=== PATIENT | female | born 1985 | race Caucasian/White ===

== ENCOUNTER → 2017-03-23 12:13 | Outpatient (CLI) | payer SELFPAY, OTHER ==
--- NOTE | 2017-03-23 12:18 | US_ITS ---
STUDY: FIRST TRIMESTER OBSTETRICAL ULTRASOUND REASON FOR EXAM: Female, 31 years old. Bleeding. LMP: November 20, 2016. TECHNIQUE: Transvaginal PRIOR ULTRASOUND: None. FINDINGS: There is visualization of a single gestational sac in a normal intrauterine position. The gestational sac is low-lying and irregular shape. There is a visualized yolk sac. The yolk sac measures . There is visualization of the placenta. The placenta is along the anterior wall. There is no demonstrated embryo ( pole). The estimated gestation age (EGA) by LMP is 17 weeks, 4 days. The estimated date of delivery (GEO) by LMP is August 27, 2017. The uterus measures 12.6 cm x 10.0 cm x 8.8 cm. The uterus is retroverted. There is no demonstrated uterine fibroid. The cervix is closed. The right ovary is not visualized. The left ovary is not visualized. There is no fluid in the cul de sac. US/Init OB < 14Wks US IMPRESSION: Incomplete . The placenta is within the anterior wall of the uterus. This is in keeping with retained products of conception. Electronically Signed: Juan Mackenzie MD at 13:30 EST Tel [phone], Service support ,
== END ==
PROVIDERS: Family Provider Family Medicine; PCP Family Medicine; Visit Provider Family Medicine
DX: N93.9 Abnormal uterine and vaginal bleeding, unspecified (principal)
CPT/HCPCS: 76801

== ENCOUNTER 2017-03-25 10:22 | Day surgery (SDC) | payer SELFPAY ==
--- NOTE | 2017-03-25 | POC_PTH ---
PATIENT: LESLI PERLA [place] [facility] [id number] AGE/SX: ROOM: RE03/25/[address]: Dr. Scott Nina MD : 1985 BED: DIS: 03/25/2017 SPEC #: [id number] RECD: 03/25/17 09:20 STATUS: SHIREEN BHUPINDER #: [id number] MAKSIM: 03/25/17 00:[address]: Scott Nina DEPT: SURGICAL PATHOLOGY RECD BY: Sohan Hampton ENTERED: 03/28/17 09:20 SP TYPE: PROD CONC OTHR DR: Dr. Rogerio Regalado, Tissues: Product of conception, NOS Procedures: Surgery Specimen Level IV HEADER OPERATION: Dilation and curettage suction PRE-OP DIAGNOSIS: Missed TISSUE SUBMITTED: Products of conception MICROSCOPIC DIAGNOSIS Endometrium, curettage: Chorionic villi, decidualized stroma and trophoblastic cells consistent with products of conception. AM:joanna 03/29/17 MICROSCOPIC DESCRIPTION Slides are reviewed. GROSS DESCRIPTION Received in fixative is one container labeled with the patient's name and designated products of conception. The specimen consists of multiple irregular fragments of red-gunn soft tissue that in aggregate measure 14 x 12 x 1 cm. parts are not grossly recognized. Cleaning Attendant sections are submitted in one cassette. / AM:joanna 03/28/17 TC:5 CPT: 18443
[2017-03-25 10:45] VITALS: BP 98/57; PULSE 64; RESP 16; TEMP 37.5; O2SAT 100; BMI 25.2
[2017-03-25 10:55] LABS: Hematocrit 40.3 % (37-47); Hemoglobin 13.9 g/dl (12.0-15.0); Mean Corp Hgb Conc 34.5 g/gl (32-36); Mean Corpuscular Hgb 30.7 pg (27.0-32.0); Mean Platelet Vol. 8.3 fl (6.2-12.0); Platelet Count 302 K/mm3 (150-450); RBC Distribution Width CV 12.5 % (11.6-14.6); RBC Distribution Width SD 40.3 fl (35.1-43.9); Red Blood Count 4.53 M/mm3 (4.2-5.4); White Blood Count 9.8 K/mm3 (4.4-11.0)
[2017-03-25 10:56] LABS: Scan Indicated on CBC? Y/N NO
[2017-03-25 11:04] LABS: International Normalized Ratio 1.1; Prothrombin Time (Protime)PT. 13.8 SECONDS (11.7-14.9)
[2017-03-25 11:05] LABS: Partial Thromboplast Time 30.7 Seconds (24.1-36.2)
--- NOTE | 2017-03-25 12:05 | PCM.DC ---
You will use the following diet at home:: No restrictions Your food should be the consistency of: Regular Discharge Activity: Return to Normal Activity, May Drive, May Shower Return to work on:: 03/30/17 May shower in (days): 0 May resume sexual activity in: 4-6 weeks Call your doctor if your incision/area has: Sudden Increased Bleeding, Increased Pain/ Swelling, Foul Smelling Discharge Call your doctor if you observe: Fever of 101 or Higher, Inability to urinate, Inability to have a bowel movement, Using more than one pad per hour, Shortness of breath, Chest pain, Calf discomfort, Uncontrolled pain Cleanse incision/area with: Soap & Water Allergies/Adverse Reactions: Allergies No Known Allergies Allergy (Verified 09/07/13 14:42) Medications to take at Discharge [place]-3 Fatty Acids/Fish Oil [Fish Oil 1,000 mg Softgel] 3 each PO DAILY 09/07/13 Vits [Prenatabs FA ] 1 tablet PO DAILY 09/07/13 Adrenal Food 4 tab PO DAILY 03/24/17 Ibuprofen [Motrin] 800 mg PO TID PRN PRN #30 tab 03/25/17 Oxycodone [Oxyir] 5 mg PO Q6H PRN PRN 3 Days #10 tab 03/25/17 The following prescriptions were given: Oxycodone [Oxyir] 5 mg PO Q6H PRN PRN 3 Days #10 tab PRN Reason: Pain Ibuprofen [Motrin] 800 mg PO TID PRN PRN #30 tab PRN Reason: pain or cramping Primary Care Physician: Rogerio Regalado [Primary Care Provider] - Please Follow Up With: Scott Nina MD When: one week Proposed Discharge Date: 03/25/17
--- NOTE | 2017-03-25 12:27 | PCM.OPRPT ---
Problem List (1) Missed with demise before 20 completed weeks of gestation Status: Chronic Report of Operation Date of Procedure: 03/25/17 Pre-Operative Diagnosis: Missed Post-Operative Diagnosis: Same Surgery/Procedure Performed:: Suction Dilation and Curettage Description of Surgical Findings:: Uterus 14 weeks size. Moderate amount of products of conception obtained. Cervix no lesions. rubber stamp die inspector: None Type of Anesthesia:: MAC Anesthesiologist: Yoo Specimen's removed: Products of conception Drains: none Estimated Blood Loss (mL): 200cc Fluids Replaced: 600cc Description of Procedure: Mili was taken to the OAR with IV running. She was given 2 grams of Cefotetan IV prior to the procedure. MAC anesthesia was then introduced without complication. SHe was then prepped and draped in the dorsal lithotomy position. SCDs were in place. The bladder was drained with a red rubber catheter. A weighted speculum was then placed the cervix identified and the anterior lip grasped with a single toothed tenaculum. The cervix was then serially dilated to 16mm without difficulty. A 16mm suction curette was then placed into the uterine cavity, suction applied and products of conception were obtained. Multiple passes were required to remove the tissue. A sharp curettage was then performed to a gritty texture throughout. The suction curette was reinserted and the remaining products of conception removed. Hemostasis was adequate at this time. All instrucments were then removed from the vagina. She was reversed from anesthesia and taken to the recovery room in stable condition. She was noted to be rH+. Sponge, lap, and needle counts were correct. - Complications none - Admit VTE Documentation VTE Present on Admission: No VTE Mechan Device Prophylaxis: SCD's VTE Pharm Prophylaxis ordered?: No
[2017-03-25 12:33] VITALS: BP 95/67; BP 98/57; PULSE 56; RESP 18; TEMP 36.9; O2SAT 99
[2017-03-25 12:35] VITALS: BP 110/59; BP 98/57; PULSE 69; RESP 18; O2SAT 96
[2017-03-25 12:40] VITALS: BP 103/63; BP 98/57; PULSE 57; RESP 18; O2SAT 97
[2017-03-25 12:46] VITALS: BP 102/61; BP 98/57; PULSE 53; RESP 18; TEMP 36.7; O2SAT 99
[2017-03-25 13:23] VITALS: BP 98/57
== END 2017-03-25 14:55 | disposition home or self-care (01) ==
LOC: SDC 10:24 → AC 10:25
PROVIDERS: Family Provider Family Medicine; PCP Family Medicine; Visit Provider Obstetrics & Gynecology
PROC: (CPT 59812; principal; 2017-03-25 11:45)
DX: O03.4 Incomplete spontaneous abortion without complication (principal); K21.9 Gastro-esophageal reflux disease without esophagitis
CPT/HCPCS: 59812; 36415; 85027; 85610; 85730; 86850; 86900; 88305; J7120; J2405

== ENCOUNTER 2017-12-05 14:12 | Emergency (ER) | payer OTHER, SELFPAY ==
[2017-12-05 14:12] VITALS: BP 121/69; PULSE 91; RESP 16; TEMP 36.6; O2SAT 98; BMI 27.8
--- NOTE | 2017-12-05 15:13 | US_ITS ---
STUDY: SECOND AND THIRD TRIMESTER OBSTETRICAL ULTRASOUND - LIMITED REASON FOR EXAM: Female, 32 years old. Right lower quadrant pain. LMP: July 24, 2017. PRIOR ULTRASOUND: None. TECHNIQUE: Transabdominal and Transvaginal TECHNICAL QUALITY: Adequate. FINDINGS: There is a single intrauterine fetus. The fetus is in a cephalic presentation. There is demonstrated cardiac activity with a heart rate of 156 bpm. There is a normal amniotic fluid volume. The largest amniotic fluid pocket measures 4.5 cm. The placenta is posterior with a marginal to completely previa. There are Grade 1 placental changes. The cervix measures 4.2 cm cm in length. The right ovary is well-visualized. There is a hypoechoic 1.6 x 1.6 x 1.2 cm mass with peripheral vascularity. BIOMETRY: BPD: 4.58 cm: 19 weeks, 6 days HC: 16.97 cm: 19 weeks, 5 days AC: 14.23 cm: 19 weeks, 5 days FL: 3.04 cm: 19 weeks, 3 days Age by LMP: 19 weeks, 1 days. GEO by LMP: 2018. age by current US: 19 weeks, 5 days. GEO by current US: April 26, 2018. Estimated weight: 297 grams, +/- 43 grams, 68 percentile. US/OB Limited With Biometrics IMPRESSION: 1. Live single intrauterine at 19 weeks, 5 days. GEO is April 26, 2018. 2. EFW 297 g. 3. Adequate amniotic fluid. 4. Anterior grade 1 placenta. There is a marginal to complete previa. 5. Vertex presentation. 6. Probable right corpus luteum cyst. Electronically Signed: Michael Berry DO at 16:26 EDT Tel [phone], Service support ,
--- NOTE | 2017-12-05 15:17 | ED.DCSUM_ITS ---
- ER Visit Summary Date of Service: 12/05/17 Chief Complaint: Right lower quadrant and pelvic pain History of Present Illness: The patient is a 32 F no significant past medical history. Currently she states she is 19 weeks . AB 3 with one being stillborn to being miscarriages. Patient denies any fever or dysuria. She denies any vaginal bleeding or discharge. She denies any abdominal trauma. She had one episode of nausea and vomiting early this morning shortly after the pain started around 01:00 a.m. No prior history of kidney stones. No prior abdominal surgery. Physical Examination: Well appearing young female. Vital signs are stable afebrile. H EENT exam unremarkable. Neck nontender. Lungs clear to auscultation bilaterally. Heart regular rate and rhythm no murmur. Abdomen is soft. Gravid uterus. Nontender. Her pain is very low right lower quadrant well below and medial to McBurney's point. No signs of trauma. No hernia. Otherwise the upper quadrants and left lower quadrant are unremarkable. She is moving all 4 extremities. They are neurovascularly intact. No edema. Back nontender no CVA tenderness. Neurologically she is awake and alert. Test Results: CBC showed an elevated white count of 16,000. Hemoglobin 13. No bands. Electrolytes unremarkable. Normal creatinine and gap. UA showed blood 5-10 on the micro to 50 on the macro but no other signs of infection. Pelvic ultrasound showed a single live IUP with a heart rate of 156. Approximately 19 weeks and 5 days by ultrasound. And a due date of April 26, 2018. Emergency Department Course and Treatment: Pelvic ultrasound with screening labs. Currently the patient does not need any medications for pain or nausea. Repeat exam at 1740 patient is doing well. Abdomen is benign. Again clinically this does not appear to be an appendicitis. The discomfort is well below her McBurney's point and medially. She is not reproducibly tender. I discussed with her and her and they do not want a CAT scan at this time due to the risk to the unborn fetus in the unlikelihood this is an acute appendicitis. I am comfortable with that plan. She will be discharged home. Tylenol for pain. Strain her urine for possible stone. Return if increasing pain or fever. Treatment Plan: Tylenol for pain. Return if increasing pain, fever or feeling worse. Follow-up with her primary care physician Dr. Regalado. Disposition: Discharge Impression: Acute pelvic and abdominal pain of uncertain etiology 19 weeks This note was generated with [employer] dictation software. It may contain incorrect words, spelling, and punctuation that were not noted in review of the chart prior to signing ED Disposition - Plan for ED Patient: Chief Complaint: Abd Pain Referrals: Rogerio Regalado DO [Primary Care Provider] -
[2017-12-05 15:36] LABS: Anion Gap 7 (5-15); BUN 5 mg/dL (7-18); BUN/Creat Ratio 7.7 RATIO (10-20); Calcium,Total 8.7 mg/dL (8.5-10.1); Chloride 103 mmol/L (98-107); Creatinine, Serum 0.65 mg/dL (0.55-1.02); EST Glomerular Filtration Rate 113 mL/min (>60); Est Glom Filt Rate - Afr Amer 136 mL/min (>60); Estimated Creatinine Clearance 102.78 ml/min; Glucose 76 mg/dL (74-106); Potassium 3.4 mmol/L (3.5-5.1); Sodium Level 137 mmol/L (136-145)
[2017-12-05 15:39] LABS: Absolute Lymphocyte Count 1.97 X10^3/ul (0.83-4.51); Absolute Neutrophil Count 13.4 X10^3/uL (2.0-7.7); Basophil# 0.01 X10^3/uL; Basophil% 0.1 % (0-1); Eosinophil# 0.04 X10^3/uL; Eosinophils% 0.2 % (0-5); Hematocrit 40.9 % (37-47); Hemoglobin 13.9 g/dl (12.0-15.0); Lymphocyte # 1.97 X10^3/ul (4.0); Lymphocyte % 12.2 % (19-41); Mean Corpuscular Hgb 30.5 pg (27.0-32.0); Mean Corpuscular Volume 89.9 fL (81-99); Mean Platelet Vol. 8.6 fl (6.2-12.0); Monocyte# 0.67 X10^3/uL; Monocyte% 4.2 % (0-10); Neutrophil # 13.41 X10^3/uL (2.7-7.7); Neutrophil % 83.1 % (47-70); Platelet Count 300 K/mm3 (150-450); RBC Distribution Width CV 13.9 % (11.6-14.6); RBC Distribution Width SD 44.5 fl (35.1-43.9); Red Blood Count 4.55 M/mm3 (4.2-5.4); White Blood Count 16.1 K/mm3 (4.4-11.0)
[2017-12-05 15:44] LABS: Bacteria 0 SEEN /hpf (None Seen); Mucous, Urine 0 SEEN /hpf (<or=2+); POSITIVE COUNT NO; POSITIVE DIFFERENTIAL NO; POSITIVE MORPHOLOGY NO; White Blood Cells 0 SEEN /hpf (0-5)
[2017-12-05 15:52] LABS: Color, Urine Yellow (Yellow); Glucose, Dipstick Normal (Normal); Ketone-Dipstick 5 mg/dl (Negative); Leukocyte Esterase-Dipstick Negative /ul (Negative); Nitrite-Dipstick Negative (Negative); Occult Blood-Urine 250 /ul (Negative); Protein-Dipstick 15 mg/dl (Negative); Urine Bilirubin Dipstick Negative (Negative); Urine Clarity Clear (Clear); Urine Urobilinogen Normal (Normal)
[2017-12-05 16:00] LABS: Red Blood Cells-Urine 5-10 SEEN /hpf (0-5); Squamous Epithelial Cells - UA 0-5 SEEN /hpf (5-10)
[2017-12-05 16:25] VITALS: RESP 16
--- NOTE | 2017-12-05 17:46 | ED.DEP ---
ED Disposition - Plan for ED Patient: Disposition: Home or Assisted Living Chief Complaint: Abd Pain Instructions: ED Abdominal Pain Unkn Cause Referrals: Rogerio Regalado DO [Primary Care Provider] - 3-5 Days if not improving Additional Instructions: Tylenol for pain. Return to the ER if increasing pain, fever or feeling worse. Your ultrasound was normal and the baby was 19 weeks and 5 days. You have a small amount of blood in your urine. There is no signs of urinary tract infection. Strain your urine for possible kidney stone.
[2017-12-05 18:01] VITALS: BP 120/75; PULSE 65; RESP 15; O2SAT 99
== END 2017-12-05 18:02 | disposition home or self-care (01) ==
PROVIDERS: Emergency Provider Emergency Medicine; Family Provider Family Medicine; PCP Family Medicine
DX: O26.892 Other specified pregnancy related conditions, second trimester (principal); R10.31 Right lower quadrant pain; R10.2 Pelvic and perineal pain; O21.9 Vomiting of pregnancy, unspecified; Z3A.19 19 weeks gestation of pregnancy
CPT/HCPCS: 76816; 80048; 81001; 85025; 99283; A4216

== ENCOUNTER 2023-09-13 16:15 | Inpatient (IN) | payer OTHER, SELFPAY ==
[2023-09-13] VITALS (8 sets, daily range): BP systolic 94–130; BP diastolic 59–79; PULSE 76–106; RESP 10–20; TEMP 37.1–38.6; O2SAT 95–99; BMI 30.2
--- NOTE | 2023-09-13 16:54 | EKG12_ITS ---
Test Reason : GENRAL Blood Pressure : / mmHG Vent. Rate : 101 BPM Atrial Rate : 101 BPM P-R Int : 132 ms QRS Dur : 080 ms QT Int : 320 ms P-R-T Axes : 060 076 024 degrees QTc Int : 414 ms Sinus tachycardia Possible Left atrial enlargement Borderline ECG Confirmed by TOYA ROSS, LES ([id number]), editor & co founder STEW DICKERSON ([id number]) on 09/16/2023 10:19:34 AM Referred By: Confirmed By:JUDD PITTMAN MD
--- NOTE | 2023-09-13 16:55 | NURSING ---
NO OLD EKGS
[2023-09-13] MEDS: 0.9% Normal Saline (1000mL) 1,000 ML 999 ML IV (17:20)
--- NOTE | 2023-09-13 17:32 | RAD_ITS ---
STUDY: X-RAY CHEST REASON FOR EXAM: Female, 38 years old. Rales posteriorly left lower lobe, fever TECHNIQUE: Frontal and lateral views of the chest. COMPARISON: None. FINDINGS: The lungs are clear and expanded. There is no demonstrated pleural abnormality. Normal size heart. Normal mediastinum and tavo. Normal visualized pulmonary arteries. Normal visualized aortic arch and descending thoracic aorta. Normal visualized thoracic spine. Normal visualized ribs, clavicles, and shoulders. There is no demonstrated abnormality of the visualized soft tissue structures of the upper abdomen. RAD/Chest PA and Lateral IMPRESSION: Normal x-ray examination of the chest. Electronically Signed: Dariel Brantley MD at 18:08 EDT ,
[2023-09-13 17:34] LABS: Mucous, Urine 0 SEEN /hpf (<or=2+)
[2023-09-13 17:37] LABS: Glucose, Dipstick Normal (Normal); Ketone-Dipstick 15 mg/dl (Negative); Leukocyte Esterase-Dipstick 500 /ul (Negative); Nitrite-Dipstick Negative (Negative); Occult Blood-Urine 25 /ul (Negative); Protein-Dipstick 15 mg/dl (Negative); Specific Gravity, Urine 1.015 (1.002-1.030); Urine Bilirubin Dipstick Negative (Negative); Urine Clarity Sl. Cloudy (Clear); Urine Urobilinogen Normal (Normal)
[2023-09-13 17:47] LABS: Absolute Neutrophil Count 4.7 X10^3/uL (2.0-7.7); Basophil# 0.01 X10^3/uL; Basophil% 0.2 % (0-1); Hematocrit 44.6 % (37-47); Hemoglobin 15.8 g/dL (12.0-15.0); Lymphocyte % 9.2 % (19-41); Mean Corp Hgb Conc 35.4 g/dL (32-36); Mean Corpuscular Hgb 29.7 pg (27.0-32.0); Mean Corpuscular Volume 83.8 fL (81-99); Mean Platelet Vol. 8.5 fl (6.2-12.0); Monocyte# 0.24 X10^3/uL; Monocyte% 4.4 % (0-10); NRBC Flagged by Analyzer 0 % (0-5); Neutrophil # 4.69 X10^3/uL (2.7-7.7); Neutrophil % 85.8 % (47-70); POSITIVE DIFFERENTIAL YES; Platelet Count 216 K/mm3 (150-450); RBC Distribution Width CV 12.4 % (11.6-14.6); RBC Distribution Width SD 38.2 fl (35.1-43.9); Red Blood Count 5.32 M/mm3 (4.2-5.4); White Blood Count 5.5 K/mm3 (4.4-11.0)
[2023-09-13 17:52] LABS: Differential Indicated SCAN CRITERIA MET; International Normalized Ratio 1.3; Prothrombin Time (Protime)PT. 16.2 SECONDS (11.7-14.9)
[2023-09-13 17:53] LABS: Partial Thromboplast Time 31.8 Seconds (24.1-36.2)
[2023-09-13 17:56] LABS: Color, Urine Yellow (Yellow)
[2023-09-13 17:57] LABS: Bacteria 2+ /hpf (None Seen); Red Blood Cells-Urine 0-5 SEEN /hpf (0-5); Squamous Epithelial Cells - UA 0-5 SEEN /hpf (5-10); White Blood Cells 25-50 SEEN /hpf (0-5)
[2023-09-13 17:58] LABS: ALB/GLOB Ratio 0.8 RATIO (0.9-2.4); AST(SGOT) 48 U/L (15-37); Alanine Aminotransfer ALT/SGPT 51 U/L (13-56); Albumin, Serum 3.8 g/dL (3.2-5.0); Alkaline Phosphatase 74 U/L (45-117); Anion Gap 6 (5-15); BUN 8 mg/dL (7-18); BUN/Creat Ratio 9.2 RATIO (10-20); Calcium,Total 8.9 mg/dL (8.5-10.1); Chloride 103 mmol/L (98-107); Creatinine, Serum 0.87 mg/dL (0.55-1.02); EST Glomerular Filtration Rate 77 mL/min (>60); Est Glom Filt Rate - Afr Amer 94 mL/min (>60); Globulin 4.7 g/dL (2.2-4.2); Glucose 106 mg/dL (74-106); Potassium 3.7 mmol/L (3.5-5.1); Protein, Total 8.5 g/dL (6.4-8.2); Sodium Level 135 mmol/L (136-145)
[2023-09-13] MEDS: Acetaminophen 325 MG Tablet 650 MG PO (17:59)
--- NOTE | 2023-09-13 18:10 | EDS_ITS ---
HPI History of Present Illness Chief Complaint: Fever Detail of Chief Complaint: Fever and not feeling well Informant: patient and spouse/S.O. Onset/Context/Timing Onset: Yesterday Context: Sudden Onset Timing: Continuous and Waxes and wanes Quality: Tmax 106 ?F Location: Not applicable Current Severity: Mild Maximum Severity: Severe Worsened by: Nothing Relieved by: Nothing Associated Symptoms Associated Symptoms: Decreased appetite and weakness Narrative Narrative: Patient is a 38-year-old [employer] woman who presents because of temperature up to 106.0 ?F today. She complains of feeling weak, ill with bifrontal head discomfort. She denies ringing or ears, decreased hearing or drainage from ears. Denies rhinorrhea, congestion postnasal drainage or sore throat. She denies cough or shortness of breath. She denies abdominal pain, nausea, vomiting or diarrhea. She denies dysuria, frequency, urgency or hematuria. She denies back or flank pain. She denies rash. She denies light sensitivity. She denies neck pain or neck stiffness. She denies ill contacts. Prior similar symptoms: No Recent Illness/Hospitalization: No PFSH PFSH Medical History no medical history no medical history Home Medications ?Medication ?Instructions ?Recorded ?Last Taken ?Type acetaminophen 500 mg capsule 500 mg PO Q6H PRN fever or pain 09/13/23 09/13/23 History Allergy/AdvReac Type Severity Reaction Status Date / Time No Known Allergies Allergy Verified 12/05/17 14:14 Social History (Updated 09/13/23 @ 18:[address] Pj Rivero MD) household members: spouse and children housing: house Smoking Status: Never smoker ROS ROS ED Constitutional Constitutional ED: Reports chills, fever(s) and sweats Eyes Eyes: Denies blurry vision, change in vision or diplopia ENT ENT ED: Denies ear pain, rhinorrhea or sore throat Cardiovascular Cardiovascular: Denies chest pain, orthopnea, palpitations or paroxysmal nocturnal dyspnea Respiratory/Chest Respiratory/Chest: Denies cough, dyspnea, dyspnea on exertion, orthopnea or paroxysmal nocturnal dyspnea Gastrointestinal Gastrointestinal: Denies abdominal pain, nausea or vomiting Genitourinary Genitourinary ED: Denies dysuria, hematuria or urinary frequency Musculoskeletal Musculoskeletal: Reports back pain; Denies arthralgias or neck pain Integumentary Denies Abrasions or rash Neurologic Neurologic: Denies headache(s), paresthesias or weakness Psychiatric Psychiatric: Denies anxiety or depression Endocrine Endocrinology: Denies cold intolerance or heat intolerance Hematologic/Lymphatic Hematologic/Lymphatic: Reports systems reviewed and no addt'l complaints, except as documented EXAM Physical Exam Const Vital Signs: 09/13/23 16:17 09/13/23 17:11 09/13/23 17:21 Temperature 99.2 F H 101.4 F H Temperature Source Oral Oral Pulse Rate 106 H 89 Respiratory Rate 20 H 10 L Respiratory Effort Respiratory Pattern Blood Pressure 102/79 130/72 H Blood Pressure Mean 86 91 Pulse Ox 98 99 Oxygen Delivery Method Room Air Room Air Room Air 09/13/23 17:28 09/13/23 18:15 09/13/23 18:21 Temperature 99.9 F H Temperature Source Oral Pulse Rate 93 98 Respiratory Rate 16 19 H Respiratory Effort Normal Non-Labored Respiratory Pattern Normal Blood Pressure 126/59 H 116/63 Blood Pressure Mean 81 80 Pulse Ox 96 95 Oxygen Delivery Method Room Air Room Air 09/13/23 18:30 Temperature 99.1 F Temperature Source Pulse Rate 94 Respiratory Rate 14 Respiratory Effort Respiratory Pattern Blood Pressure 124/62 H Blood Pressure Mean 82 Pulse Ox 97 Oxygen Delivery Method Positive well nourished and well developed Constitutional Narrative: Patient appears ill. General Appearance ED: well developed and diaphoretic; Negative for cyanotic, NAD or pallor HEENT Reports TM's clear and dry mucous membranes Negative for trauma or tenderness Tympanic Membrane ED: Yes TM's clear Mouth ED: Yes dry mucous membranes Mouth: dry mucous membranes Eyes PERRL and EOMs intact bilaterally General Eye ED: Negative for pale conjunctiva or scleral icterus Neck no lymphadenopathy, supple and no JVD Chest Wall inspection of chest normal and palpation of chest normal Resp normal respiratory effort and clear to auscultation bilaterally Cardio regular rhythm, S1 normal heart sound, S2 normal heart sound and no murmurs Rate: tachycardic GI normal to inspection, nondistended, normoactive bowel sounds, non-tender, non- distended and no masses; Negative for hepatosplenomegaly Back/Spine General Back: CVA tenderness left Extremity normal to inspection Neuro oriented x3, CN's II-XII intact bilaterally and no sensory deficits noted Neuro Narrative: Patient is awake but not alert. She does appear ill. Sensorium / Orientation: Negative for alert Psych mental status grossly normal Skin no rashes or lesions noted, no wounds and skin turgor normal General Skin Exam: elasticity normal; Negative for jaundice or pallor MDM MDM MDM Narrative Medical decision making narrative: Differential diagnosis would include acute viral illness, pyelonephritis, pneumonia. Sepsis workup was initiated. Based on laboratory results patient has UTI/acute pyelonephritis on the left. Since she is febrile, tachycardic she does meet sepsis criteria without endorgan dysfunction. Will call hospitalist for admission. History & Record Review Discussion w/independent historian: Significant other Lab Data Attestation: I reviewed the patient's lab results. Lab results narrative: White count is normal. There is a shift with no bandemia. Coags normal. Lactate normal. Electrolyte panel is normal. UA is remarkable for infection. Labs: Laboratory Results - last 24 hr 09/13/23 17:10 WBC 5.5 RBC 5.32 Hgb 15.8 H Hct 44.6 MCV 83.8 MCH 29.7 MCHC 35.4 RDW Std Deviation 38.2 RDW Coeff of Nisha 12.4 Plt Count 216 MPV 8.5 Immature Gran % (Auto) 0.400 Neut % (Auto) 85.8 H Lymph % (Auto) 9.2 L Cedar % (Auto) 4.4 Eos % (Auto) 0.0 Baso % (Auto) 0.2 Absolute Neuts (auto) 4.7 Absolute Lymphs (auto) 0.50 L Nucleated RBC % 0 Differential Comment @SLIDE SCANNED Platelet Estimate ADEQUATE RBC Morphology N CHROM Anisocytosis RARE PT 16.2 H INR 1.3 APTT 31.8 Sodium 135 L Potassium 3.7 Chloride 103 Carbon Dioxide 26.0 Anion Gap 6 BUN 8 Creatinine 0.87 Est GFR (MDRD) Af Amer 94 Est GFR (MDRD) Non-Af 77 BUN/Creatinine Ratio 9.2 L Glucose 106 Lactic Acid 1.0 Calcium 8.9 Total Bilirubin 1.00 AST 48 H ALT 51 Alkaline Phosphatase 74 Total Protein 8.5 H Albumin 3.8 Globulin 4.7 H Albumin/Globulin Ratio 0.8 L Urine Color Yellow Urine Clarity Sl. Cloudy Urine pH 8.0 Ur Specific [place] 1.015 Urine Protein 15 H Urine Glucose (UA) Normal Urine Ketones 15 H Urine Occult Blood 25 H Urine Nitrite Negative Urine Bilirubin Negative Urine Urobilinogen Normal Ur Leukocyte Esterase 500 H Urine RBC 0-5 SEEN Urine WBC 25-50 SEEN Ur Squamous Epith Cells 0-5 SEEN Urine Bacteria 2+ Urine Mucus 0 SEEN Radiography Diagnostic Testing: Clinical Impression(s) from Imaging Studies Chest X-Ray 09/13/23 17:32 IMPRESSION: Normal x-ray examination of the chest. Electronically Signed: Dariel Brantley MD at 18:08 EDT , Management Discussion w/another healthcare provider: Hospitalist Treatment and Re-Evaluation :: Patient received a gram of Rocephin. Case discussed with hospitalist. Discharge Plan Triage Chief Complaint: Fever ED Provider: Pj Rivero Dx/Rx/DC Orders Clinical Impression: Acute bacterial pyelonephritis, Sepsis without acute organ dysfunction, Acute dehydration, Sinus tachycardia Prescriptions: No Action acetaminophen 500 mg capsule 500 mg PO Q6H PRN (Reason: fever or pain) Primary Care Provider: Rogerio Regalado Referrals: Rogerio Regalado DO [Primary Care Provider] - Print Language: Vincentian Disposition Disposition: Acute Care Hospital [facility]
[2023-09-13] MEDS: Ceftriaxone 1 GM/50 ML BAG IV (18:24)
[2023-09-13 18:28] LABS: Anisocytosis RARE; Differential Comment @SLIDE SCANNED; Platelet Estimate ADEQUATE (ADEQ); Red Cell Morphology N CHROM NORMAL (NORM C&C)
--- NOTE | 2023-09-13 19:42 | HP.PCM.HOS_ITS ---
HPI - General General Date of Service: 09/13/23 Chief Complaint: Fever and abdominal pain HPI Narrative LESLI PERLA, is a 38 F with no segment past medical history presents with fever and abdominal pain. Patient has been feeling rundown since this past Tuesday but beginning Tuesday started having fevers and started having back pain. Back pain was more to the left. Also having some dysuria. This morning, had a temperature of 107 and it was sent to the emergency room. In the emergency room, clinically it was felt that she had pyelonephritis and urinalysis boar out that she had a urinary tract infection. Patient received IV fluids, ceftriaxone and acetaminophen. Patient is feeling better at this time. She has not had urinary tract infections that she has been aware of previously. PFSH Medical History no medical history no medical history Home Medications ?Medication ?Instructions ?Recorded ?Last Taken ?Type acetaminophen 500 mg capsule 500 mg PO Q6H PRN fever or pain 09/13/23 09/13/23 History Allergy/AdvReac Type Severity Reaction Status Date / Time No Known Allergies Allergy Verified 12/05/17 14:14 Social History household members: spouse and children housing: house Smoking Status: Never smoker ROS ROS Narrative Denies abdominal pain. All review of systems were negative except as mentioned above in the history of present illness and the other review of systems. Vital Signs Vital Signs Vital Signs: 09/13/23 16:17 09/13/23 17:11 09/13/23 17:21 Temperature 37.3 C H 38.6 C H Temperature Source Oral Oral Pulse Rate 106 H 89 Respiratory Rate 20 H 10 L Respiratory Effort Respiratory Pattern Blood Pressure 102/79 130/72 H Blood Pressure Mean 86 91 Pulse Ox 98 99 Oxygen Delivery Method Room Air Room Air Room Air 09/13/23 17:28 09/13/23 18:15 09/13/23 18:21 Temperature 37.7 C H Temperature Source Oral Pulse Rate 93 98 Respiratory Rate 16 19 H Respiratory Effort Normal Non-Labored Respiratory Pattern Normal Blood Pressure 126/59 H 116/63 Blood Pressure Mean 81 80 Pulse Ox 96 95 Oxygen Delivery Method Room Air Room Air 09/13/23 18:30 09/13/23 19:20 Temperature 37.3 C 37.7 C H Temperature Source Oral Pulse Rate 94 98 Respiratory Rate 14 15 Respiratory Effort Respiratory Pattern Blood Pressure 124/62 H 112/64 Blood Pressure Mean 82 80 Pulse Ox 97 96 Oxygen Delivery Method Room Air Results Lab / Micro Data Attestation: I reviewed the patient's lab results. 09/13/23 17:10 09/13/23 17:10 Labs: Laboratory Results - last 24 hr 09/13/23 17:10: WBC 5.5, RBC 5.32, Hgb 15.8 H, Hct 44.6, MCV 83.8, MCH 29.7, MCHC 35.4, RDW Std Deviation 38.2, RDW Coeff of Nisha 12.4, Plt Count 216, MPV 8.5, Immature Gran % (Auto) 0.400, Neut % (Auto) 85.8 H, Lymph % (Auto) 9.2 L, [place] % (Auto) 4.4, Eos % (Auto) 0.0, Baso % (Auto) 0.2, Absolute Neuts (auto) 4.7, Absolute Lymphs (auto) 0.50 L, Nucleated RBC % 0, Differential Comment @SLIDE SCANNED, Platelet Estimate ADEQUATE, RBC Morphology N CHROM, Anisocytosis RARE, PT 16.2 H, INR 1.3, APTT 31.8, Sodium 135 L, Potassium 3.7, Chloride 103, Carbon Dioxide 26.0, Anion Gap 6, BUN 8, Creatinine 0.87, Est GFR (MDRD) Af Amer 94, Est GFR (MDRD) Non-Af 77, BUN/Creatinine Ratio 9.2 L, Glucose 106, Lactic Acid 1.0, Calcium 8.9, Total Bilirubin 1.00, AST 48 H, ALT 51, Alkaline Phosphatase 74, Total Protein 8.5 H, Albumin 3.8, Globulin 4.7 H, A lbumin/Globulin Ratio 0.8 L, Urine Color Yellow, Urine Clarity Sl. Cloudy, Urine pH 8.0, Ur Specific Lillie 1.015, Urine Protein 15 H, Urine Glucose (UA) Normal, Urine Ketones 15 H, Urine Occult Blood 25 H, Urine Nitrite Negative, Urine Bilirubin Negative, Urine Urobilinogen Normal, Ur Leukocyte Esterase 500 H , Urine RBC 0-5 SEEN, Urine WBC 25-50 SEEN, Ur Squamous Epith Cells 0-5 SEEN, Urine Bacteria 2+, Urine Mucus 0 SEEN Micro: Microbiology 09/13/23 17:10 Mucosa - Nasopharyngeal SARS-CoV-2, Influenza & RSV (PCR) - Final EKG Initial EKG: Attestation: I personally reviewed and interpreted this EKG as follows: Prior EKG tracings: available for review EKG Rhythm Intrepretation: Sinus Tachycardia (Left atrial enlargement) Imaging Radiology Impression Chest X-Ray 09/13/23 17:32 IMPRESSION: Normal x-ray examination of the chest. Electronically Signed: Dariel Brantley MD at 18:08 EDT , Assessment & Plan Assessment/Plan (1) Pyelonephritis: PLAN: Plan Acute pyelonephritis * Patient received ceftriaxone and will continue on the floor. Follow-up cultures. * Check ultrasound to see if there is any evidence of any kind of perinephric abscess or obstructive pathology. Sepsis * 2 out of 4 SIRS criteria met given temperature of 38 6, tachycardia of 106. * Secondary to pyelonephritis * Follow cultures VTE prophylaxis with enoxaparin Charges/Coding Visit Charges Inpatient E&M: 78922 Init Hosp L2
--- NOTE | 2023-09-13 19:52 | US_ITS ---
STUDY: RENAL ULTRASOUND - COMPLETE REASON FOR EXAM: Female, 38 years old. LT PYELONEPHRITIS TECHNIQUE: Ultrasound evaluation of the kidneys was performed with real-time and static mai-scale imaging. COMPARISON: None. FINDINGS: RIGHT KIDNEY: Normal location of the right kidney, which is normal in size. The right kidney measures 13.1 x 4.5 at 2.5 cm. There is a normal cortex of the right kidney. The renal cortex measures 1.4. cm. There is no right renal mass or cyst. There are no right renal calculi. There is no right hydronephrosis. DISTAL RIGHT URETER: There is non-visualization of the distal right ureter. There is no demonstrated right ureterovesical junction calculus. There is no demonstrated right ureteral jet. LEFT KIDNEY: Normal location of the left kidney, which is normal in size. The left kidney measures 12.7 x 4.8 x 3.2 cm. There is a normal cortex of the left kidney. The renal cortex measures 1.3 cm. There is no left renal mass or cyst. There are no left renal calculi. There is no left hydronephrosis. DISTAL LEFT URETER: There is non-visualization of the distal left ureter. There is no demonstrated left ureterovesical junction calculus. There is no demonstrated left ureteral jet. BLADDER: The distended urinary bladder has a volume of 149 ml. There is a normal wall thickness of the distended urinary bladder. There is no demonstrated mass within the urinary bladder. There are no demonstrated bladder calculi. US/Kidney and Bladder IMPRESSION: Normal ultrasound of the kidneys and urinary bladder. Electronically Signed: Dariel Brantley MD at 21:27 EDT ,
[2023-09-13 20:36] LABS: Internal QC Validated? YES +Cl - CLEAR BKGD; Pregnancy, Serum, hCG Quali. NEGATIVE Negative; Record Kit Lot#, Serum Preg. 772476
[2023-09-13] MEDS: 0.9% Normal Saline (1000mL) 1,000 ML 200 ML IV (22:44)
[2023-09-14] VITALS (7 sets, daily range): BP systolic 98–113; BP diastolic 52–63; PULSE 64–88; RESP 16–18; TEMP 36.9–39; O2SAT 96–98
[2023-09-14] MEDS: Ibuprofen 600 MG Tablet PO (00:55)
[2023-09-14 06:53] LABS: Absolute Neutrophil Count 2.9 X10^3/uL (2.0-7.7); Basophil# 0.01 X10^3/uL; Basophil% 0.3 % (0-1); Hematocrit 40.4 % (37-47); Hemoglobin 13.7 g/dL (12.0-15.0); Lymphocyte % 11.3 % (19-41); Mean Corp Hgb Conc 33.9 g/dL (32-36); Mean Corpuscular Volume 85.6 fL (81-99); Mean Platelet Vol. 8.4 fl (6.2-12.0); Monocyte# 0.21 X10^3/uL; Monocyte% 5.9 % (0-10); NRBC Flagged by Analyzer 0 % (0-5); Neutrophil # 2.92 X10^3/uL (2.7-7.7); Neutrophil % 82.2 % (47-70); POSITIVE DIFFERENTIAL YES; Platelet Count 150 K/mm3 (150-450); RBC Distribution Width CV 12.4 % (11.6-14.6); RBC Distribution Width SD 38.8 fl (35.1-43.9); Red Blood Count 4.72 M/mm3 (4.2-5.4); White Blood Count 3.6 K/mm3 (4.4-11.0)
[2023-09-14 07:19] LABS: Anion Gap 4 (5-15); BUN 7 mg/dL (7-18); BUN/Creat Ratio 11.2 RATIO (10-20); Chloride 110 mmol/L (98-107); Creatinine, Serum 0.63 mg/dL (0.55-1.02); EST Glomerular Filtration Rate 113 mL/min (>60); Est Glom Filt Rate - Afr Amer 137 mL/min (>60); Estimated Creatinine Clearance 123.74 ml/min; Glucose 111 mg/dL (74-106); Potassium 3.6 mmol/L (3.5-5.1); Sodium Level 138 mmol/L (136-145)
--- NOTE | 2023-09-14 08:08 | PN.HOSP_ITS ---
Subjective Subjective Doing well, no issues overnight. Feels little bit better today. Objective Data Objective Data Vital Signs: Vital Signs Temp Pulse Resp BP Pulse Ox O2 Del Method 98.6 F 75 16 103/54 L 96 Room Air 09/14/23 05:02 09/14/23 05:02 09/14/23 05:02 09/14/23 05:02 09/14/23 05:02 09/14/23 05:02 Oxygen Delivery Method Room Air Weight: 175 lb 14.862 oz Body Mass Index (BMI) 30.2 Intake & Output: Intake and Output for Last 24 Hours 09/13/23 09/14/23 09/15/23 03:59 03:59 03:59 Intake Total 1050 / 1050 1000 / 1000 Balance 1050 / 1050 1000 / 1000 Lab / Micro Data 09/14/23 06:09 09/14/23 06:09 Labs: Laboratory Results - last 24 hr 09/13/23 17:10: WBC 5.5, RBC 5.32, Hgb 15.8 H, Hct 44.6, MCV 83.8, MCH 29.7, MCHC 35.4, RDW Std Deviation 38.2, RDW Coeff of Nisha 12.4, Plt Count 216, MPV 8.5, Immature Gran % (Auto) 0.400, Neut % (Auto) 85.8 H, Lymph % (Auto) 9.2 L, [place] % (Auto) 4.4, Eos % (Auto) 0.0, Baso % (Auto) 0.2, Absolute Neuts (auto) 4.7, Absolute Lymphs (auto) 0.50 L, Nucleated RBC % 0, Differential Comment @SLIDE SCANNED, Platelet Estimate ADEQUATE, RBC Morphology N CHROM, Anisocytosis RARE, PT 16.2 H, INR 1.3, APTT 31.8, Sodium 135 L, Potassium 3.7, Chloride 103, Carbon Dioxide 26.0, Anion Gap 6, BUN 8, Creatinine 0.87, Est GFR (MDRD) Af Amer 94, Est GFR (MDRD) Non-Af 77, BUN/Creatinine Ratio 9.2 L, Glucose 106, Lactic Acid 1.0, Calcium 8.9, Total Bilirubin 1.00, AST 48 H, ALT 51, Alkaline Phosphatase 74, Total Protein 8.5 H, Albumin 3.8, Globulin 4.7 H, A lbumin/Globulin Ratio 0.8 L, Urine Color Yellow, Urine Clarity Sl. Cloudy, Urine pH 8.0, Ur Specific [place] 1.015, Urine Protein 15 H, Urine Glucose (UA) Normal, Urine Ketones 15 H, Urine Occult Blood 25 H, Urine Nitrite Negative, Urine Bilirubin Negative, Urine Urobilinogen Normal, Ur Leukocyte Esterase 500 H , Urine RBC 0-5 SEEN, Urine WBC 25-50 SEEN, Ur Squamous Epith Cells 0-5 SEEN, Urine Bacteria 2+, Urine Mucus 0 SEEN 09/13/23 17:24: Serum , Qual NEGATIVE 09/14/23 06:09: WBC 3.6 L, RBC 4.72, Hgb 13.7, Hct 40.4, MCV 85.6, MCH 29.0, MCHC 33.9, RDW Std Deviation 38.8, RDW Coeff of Nisha 12.4, Plt Count 150, MPV 8.4, Immature Gran % (Auto) 0.300, Neut % (Auto) 82.2 H, Lymph % (Auto) 11.3 L, [place] % (Auto) 5.9, Eos % (Auto) 0.0, Baso % (Auto) 0.3, Absolute Neuts (auto) 2.9, Absolute Lymphs (auto) 0.40 L, Nucleated RBC % 0, Sodium 138, Potassium 3.6, Chloride 110 H, Carbon Dioxide 24.0, Anion Gap 4 L, BUN 7, Creatinine 0.63, Estim Creat Clear Calc 123.74, Est GFR (MDRD) Af Amer 137, Est GFR (MDRD) Non-Af 113, BUN/Creatinine Ratio 11.2, Glucose 111 H, Calcium 8.0 L Micro: Microbiology 09/13/23 17:10 Mucosa - Nasopharyngeal SARS-CoV-2, Influenza & RSV (PCR) - Final Radiography Diagnostic Testing: Radiology Impression Chest X-Ray 09/13/23 17:32 IMPRESSION: Normal x-ray examination of the chest. Electronically Signed: Dariel Brantley MD at 18:08 EDT , Renal Ultrasound 09/13/23 19:52 IMPRESSION: Normal ultrasound of the kidneys and urinary bladder. Electronically Signed: Dariel Brantley MD at 21:27 EDT , Physical Exam Narrative General: Alert, Oriented x3, Cooperative, No apparent distress HEENT: Atraumatic, PERRLA, EOMI, Normocephalic Oral: Moist Mucosa Neck: Supple, No JVD Lungs: Diminished, Normal air movement, No rhonchi, No wheeze, No rales Cardiovascular: Regular rate, Regular Rhythm, Normal S1, Normal S2, No murmurs Abdomen: Soft, Non Tender, Non-Distended, No Hepato-splenomegaly Extremities: No edema, Capillary Refill Less than 3 Seconds Skin: No rashes, No breakdown Musculoskeletal: No Tenderness to Palpation of Joints or Extremities Neurological: No focal neurological deficits, Motor Exam 5/5 strength throughout, Sensory exam intact to light touch and pain Psych/Mental Status: Normal Affect, Appropriate Assessment & Plan Assessment/Plan (1) Pyelonephritis: PLAN: Plan 1. Sepsis secondary to acute pyelonephritis ? Renal ultrasound was unremarkable ? Continue with Rocephin ? Urine cultures are pending ? Blood cultures are pending DVT: Lovenox Charges/Coding Visit Charges Inpatient E&M: 89901 Subs Hosp L2
[2023-09-14] MEDS: Enoxaparin 40 MG/0.4 ML Syringe SC (10:42)
[2023-09-14] MEDS: Ceftriaxone 1 GM/50 ML BAG IV (10:45)
[2023-09-14] MEDS: 0.9% Saline Lock 10 ML Syringe IV (11:01)
--- NOTE | 2023-09-14 11:58 | CASEMGMT ---
RODERICK HUSSEIN Assessment Face to Face with patient for initial transition planning/care coordination assessment. RODERICK HUSSEIN introduced self and role at [facility], pt voices understanding. Pt is A&Ox4 and is resting comfortably in bed and is calm. Care providers, pharmacy, and demographics verified. Admitting dx: Pyelonephritis PCP: Rogerio Regalado Specialists: Denies Preferred Pharmacy: [facility] Insurance: [employer] Prescription Benefit: Denies. Pt educated about free services such as Good Rx LNOK: Edwin Leroy (H) Living Arrangements: Pt lives with her and 7 children (Ages 14,13,11,8,5,4, & 1) in a two story home with 10 steps to enter the front and 2 steps to enter the back ADLs/IADLs: Ind Transportation: Pt does not drive. Pt and pt family hire drivers. Pt denies concerns and states that she will hire a mechanic driver at time of DC DME: Denies all DME uses or needs HHC/SNF: Denies history or needs Pt?s goal: Home Plan: Home no needs. 6-Click is 24. Pt denies the need for HHC, OP Tx, or SNF. Pt states that she feels safe discharging home with her family once she is medically ready. Pt denies further questions or concerns. Anil Lane RN, CM
[2023-09-14] MEDS: oxyCODONE 5 MG Tablet PO (13:53)
[2023-09-14] MEDS: Acetaminophen 325 MG Tablet 650 MG PO (13:53)
[2023-09-15 03:01] VITALS: BP 108/69; PULSE 85; RESP 18; TEMP 37.4; O2SAT 98
[2023-09-15] MEDS: 0.9% Saline Lock 10 ML Syringe IV ×2 (03:03→10:34)
[2023-09-15] MEDS: Acetaminophen 325 MG Tablet 650 MG PO (03:07)
[2023-09-15 07:33] LABS: Absolute Lymphocyte Count 1.34 X10^3/uL (0.83-4.51); Absolute Neutrophil Count 1.2 X10^3/uL (2.0-7.7); Basophil# 0.03 X10^3/uL; Eosinophils% 3.3 % (0-5); Hematocrit 40.7 % (37-47); Hemoglobin 13.8 g/dL (12.0-15.0); Lymphocyte # 1.34 X10^3/ul (0.83-4.51); Lymphocyte % 43.8 % (19-41); Mean Corp Hgb Conc 33.9 g/dL (32-36); Mean Corpuscular Hgb 28.6 pg (27.0-32.0); Mean Corpuscular Volume 84.4 fL (81-99); Mean Platelet Vol. 9.1 fl (6.2-12.0); Monocyte# 0.39 X10^3/uL; Monocyte% 12.7 % (0-10); NRBC Flagged by Analyzer 0 % (0-5); Neutrophil # 1.19 X10^3/uL (2.7-7.7); Neutrophil % 38.9 % (47-70); POSITIVE MORPHOLOGY YES; Platelet Count 134 K/mm3 (150-450); RBC Distribution Width CV 12.5 % (11.6-14.6); RBC Distribution Width SD 38.1 fl (35.1-43.9); Red Blood Count 4.82 M/mm3 (4.2-5.4); White Blood Count 3.1 K/mm3 (4.4-11.0)
[2023-09-15 08:28] VITALS: BP 101/59; PULSE 76; RESP 18; TEMP 36.8; O2SAT 100
[2023-09-15 08:44] LABS: Anion Gap 2 (5-15); BUN 5 mg/dL (7-18); BUN/Creat Ratio 8.3 RATIO (10-20); Calcium,Total 8.2 mg/dL (8.5-10.1); Chloride 110 mmol/L (98-107); EST Glomerular Filtration Rate 119 mL/min (>60); Est Glom Filt Rate - Afr Amer 144 mL/min (>60); Estimated Creatinine Clearance 129.93 ml/min; Glucose 99 mg/dL (74-106); Potassium 3.6 mmol/L (3.5-5.1); Sodium Level 138 mmol/L (136-145)
[2023-09-15 09:12] LABS: Differential Indicated SCAN CRITERIA MET
[2023-09-15 10:03] LABS: Differential Comment SCANNED; Platelet Estimate SLT DEC (ADEQ); Red Cell Morphology NORM C+C NORMAL (NORM C&C)
--- NOTE | 2023-09-15 10:05 | NURSING ---
verbal report given to Pratima Shane RN
[2023-09-15] MEDS: Enoxaparin 40 MG/0.4 ML Syringe SC (10:34)
[2023-09-15] MEDS: Ceftriaxone 1 GM/50 ML BAG IV (10:34)
--- NOTE | 2023-09-15 12:08 | PCM.PN.HOSP ---
Reason for Visit Reason for Visit: Diagnoses Tubulo-interstitial nephritis, not specified as acute or chronic (09/13/23) Objective Data Objective Data Vital Signs: Vital Signs Temp Pulse Resp BP Pulse Ox O2 Del Method 98.2 F 76 18 101/59 L 100 Room Air 09/15/23 08:28 09/15/23 08:28 09/15/23 08:28 09/15/23 08:28 09/15/23 08:28 09/15/23 08:28 Oxygen Delivery Method Room Air Weight: 79.8 kg Body Mass Index (BMI) 30.2 Intake & Output: Intake and Output for Last 24 Hours 09/13/23 09/14/23 09/15/23 23:59 23:59 23:59 Intake Total 1050 / 1050 3370 / 3370 920 / 920 Balance 1050 / 1050 3370 / 3370 920 / 920 Lab / Micro Data 09/15/23 07:03 09/15/23 07:03 Labs: Laboratory Results - last 24 hr 09/15/23 07:03: WBC 3.1 L, RBC 4.82, Hgb 13.8, Hct 40.7, MCV 84.4, MCH 28.6, MCHC 33.9, RDW Std Deviation 38.1, RDW Coeff of Nisha 12.5, Plt Count 134 L, MPV 9.1, Immature Gran % (Auto) 0.300, Neut % (Auto) 38.9 L, Lymph % (Auto) 43.8 H, [place] % (Auto) 12.7 H, Eos % (Auto) 3.3, Baso % (Auto) 1.0, Absolute Neuts (auto) 1.2 L, Absolute Lymphs (auto) 1.34, Nucleated RBC % 0, Differential Comment SCANNED, Platelet Estimate SLT DEC, RBC Morphology NORM C+C, Sodium 138, Potassium 3.6, Chloride 110 H, Carbon Dioxide 26.0, Anion Gap 2 L, BUN 5 L, Creatinine 0.60, Estim Creat Clear Calc 129.93, Est GFR (MDRD) Af Amer 144, Est GFR (MDRD) Non-Af 119, BUN/Creatinine Ratio 8.3 L, Glucose 99, Calcium 8.2 L Micro: Microbiology 09/13/23 17:10 Urine, Clean Catch Urine Culture - Final Culture exhibits no growth. 09/13/23 17:10 Mucosa - Nasopharyngeal SARS-CoV-2, Influenza & RSV (PCR) - Final
--- NOTE | 2023-09-15 13:12 | PCM.DC ---
Discharge Instructions Diet Discharge Diet: No restrictions Activity Discharge Activity: No Restrictions Follow Up Care Test Results: Test results from this visit will be discussed in further detail at your follow-up appointment, if applicable. Discharge Plan Admission Admit Date/Time: 09/13/23 19:39 Primary Reason for Your Visit: Fevers and abdominal pain Attending Provider: Temo Hammonds Primary Care Provider: Rogerio Regalado Consulting Providers: Randy Moscoso; Igor Pérez Instructions Additional Instructions / Restrictions: Please take antibiotic below twice daily for 5 more days to complete 7 day course of antibiotics total. Discharge Orders/Prescriptions Prescriptions: New ciprofloxacin HCl 500 mg tablet 500 mg PO BID 5 Days Qty: 10 0RF Continued acetaminophen 500 mg capsule 500 mg PO Q6H PRN (Reason: fever or pain) Referrals / Follow Up: Rogerio Regalado DO [Primary Care Provider] - Disposition Disposition (needs filled in before D/C Order can be placed): Home, Self Care
--- NOTE | 2023-09-15 13:12 | PCM.DC.SUM ---
Providers Date of Admission: 09/13/23 Date of Discharge: 09/15/23 Primary Care Physician: Dr. Rogerio Regalado DO Reason For Visit: PYELO Diagnosis Discharge Diagnosis (1) Pyelonephritis: Status: Acute Code(s): N12 - Tubulo-interstitial nephritis, not specified as acute or chronic Medications at Discharge Home Medications acetaminophen 500 mg capsule 500 mg PO Q6H PRN fever or pain 09/13/23 ciprofloxacin HCl 500 mg tablet 500 mg PO BID 5 days #10 tabs 09/15/23 Hospital Course Operations None Procedures - (Chest x-ray, renal ultrasound) Summary of Care Provided Minutes Spent on Discharge: 35 Hospital Course: Patient is a 38-year-old female who presented to [facility] ED on 09/13/2023 with fevers and abdominal pain. Hospital course as noted below. Patient discharged home on 09/14 in stable condition. 1. Sepsis without shock secondary to suspected acute pyelonephritis, improving ? Patient presented with subjective fevers and abdominal/flank pain with dysuria. UA on admit showed 500 leukocyte esterase, negative nitrites, 2+ bacteria. Met sepsis criteria on admission with fever and tachycardia with suspected urinary source. Renal/bladder ultrasound was unremarkable. Patient was given IV fluids and started on ceftriaxone on admission. Had significant improvement in symptoms during hospitalization. Urine culture surprisingly came back with no growth. However, given UA findings and clinical symptoms, discharge patient on ciprofloxacin to complete 7-day course of antibiotics total. Total clinical time spent by myself addressing the patient's medical issues, reviewing all the data, and collaborating with patient's care team: 35 minutes. Physical Exam Const alert, oriented x3, no apparent distress, healthy appearing and well nourished Constitutional Narrative: Pleasant middle-age female, obese, sitting up comfortably in bed, conversing normally, no acute distress. General Appearance: cooperative, comfortable, well kempt and well developed HEENT normocephalic, head/scalp atraumatic, hearing grossly normal bilaterally, nasal mucous membranes and turbinates normal and moist oral mucous membranes Eyes PERRL, EOMs intact bilaterally and conjunctivae normal Neck full ROM Chest inspection of chest normal Resp normal respiratory effort, normal air movement, no use of accessory muscles and clear to auscultation bilaterally Cardio regular rate, regular rhythm, no murmurs and peripheral pulses 2+ throughout GI normal to inspection, nondistended, normoactive bowel sounds, soft to palpation, non-tender and non-distended Back/Spine normal ROM Extremity normal to inspection, full ROM and no pedal edema Skin no rashes or lesions noted Neuro no focal motor deficits and no sensory deficits noted Speech: speech normal Psych mental status grossly normal Weight / BMI Weight Weight: 79.8 kg Body Mass Index (BMI) 30.2 ABG / Lab / Microbiology Data 09/15/23 07:03 09/15/23 07:03 Laboratory: Laboratory Results - last 24 hr 09/15/23 07:03: WBC 3.1 L, RBC 4.82, Hgb 13.8, Hct 40.7, MCV 84.4, MCH 28.6, MCHC 33.9, RDW Std Deviation 38.1, RDW Coeff of Nisha 12.5, Plt Count 134 L, MPV 9.1, Immature Gran % (Auto) 0.300, Neut % (Auto) 38.9 L, Lymph % (Auto) 43.8 H, [place] % (Auto) 12.7 H, Eos % (Auto) 3.3, Baso % (Auto) 1.0, Absolute Neuts (auto) 1.2 L, Absolute Lymphs (auto) 1.34, Nucleated RBC % 0, Differential Comment SCANNED, Platelet Estimate SLT DEC, RBC Morphology NORM C+C, Sodium 138, Potassium 3.6, Chloride 110 H, Carbon Dioxide 26.0, Anion Gap 2 L, BUN 5 L, Creatinine 0.60, Estim Creat Clear Calc 129.93, Est GFR (MDRD) Af Amer 144, Est GFR (MDRD) Non-Af 119, BUN/Creatinine Ratio 8.3 L, Glucose 99, Calcium 8.2 L Microbiology: Microbiology 09/13/23 17:10 Urine, Clean Catch Urine Culture - Final Culture exhibits no growth. 09/13/23 17:10 Mucosa - Nasopharyngeal SARS-CoV-2, Influenza & RSV (PCR) - Final Meaningful Use Info Meaningful Use Meaningful Use Diagnoses (Choose all that apply): None applicable Ischemic Stroke Statin Dosing Therapy Reference: STATIN DOSE THERAPY REFERENCE: * Patients > 75 years receive moderate or high dose statin therapy. * Patients 75 years or YOUNGER should receive HIGH intensity statin dose unless contraindicated. You will be required to document reason for non-treatment if statin daily dose does not meet guidelines. HIGH DOSE STATIN THERAPY DAILY Atorvastatin > than or = to 40 mg Rosuvastatin > than or = to 20 mg Amlodipine + Atorvastatin > than or = to 2.5/40 mg Ezetimibe + Simvastatin 10/80 mg Simvastatin 80mg Discharge Plan Admission Admit Date/Time: 09/13/23 19:39 Primary Reason for Your Visit: Fevers and abdominal pain Attending Provider: Temo Hammonds Primary Care Provider: Rogerio Regalado Consulting Providers: Randy Moscoso; Igor Pérez Instructions Additional Instructions / Restrictions: Please take antibiotic below twice daily for 5 more days to complete 7 day course of antibiotics total. Discharge Orders/Prescriptions Prescriptions: New ciprofloxacin HCl 500 mg tablet 500 mg PO BID 5 Days Qty: 10 0RF Continued acetaminophen 500 mg capsule 500 mg PO Q6H PRN (Reason: fever or pain) Referrals / Follow Up: Rogerio Regalado DO [Primary Care Provider] - Disposition Disposition (needs filled in before D/C Order can be placed): Home, Self Care Charges/Coding Visit Charges Inpatient E&M: 61810 Disch Hosp >30min
[2023-09-15 13:41] VITALS: BP 108/64; PULSE 75; RESP 14; TEMP 36.7; O2SAT 99
== END 2023-09-15 14:30 | disposition home or self-care (01) | DRG 690 ==
LOC: ED 18:34 → MS3 20:30
PROVIDERS: Family Medicine; Emergency Provider Emergency Medicine; PCP Family Medicine; Visit Provider Hospitalist
DX: N10 Acute pyelonephritis (principal)
CPT/HCPCS: 36415; 71046; 76770; 80048; 80053; 81001; 83605; 84703; 85025; 85610; 85730; 87040; 87086; 87631; 93005; 94668; 99252; 99285; J7030; A4216; G0463